=== PATIENT | female | born 1970 | race Caucasian/White ===

== ENCOUNTER → 2019-07-21 16:27 | Outpatient (BNVA) | payer SELFPAY | PROVIDERS: Visit Provider Internal Medicine | DX: D50.9 Iron deficiency anemia, unspecified (principal) | CPT/HCPCS: 82306; 82607; 83540; 84443 ==

== ENCOUNTER → 2020-01-20 09:00 | Outpatient (BNVA) | payer OTHER, SELFPAY | PROVIDERS: Family Provider Internal Medicine; PCP Internal Medicine; Visit Provider Nurse Practitioner Family | DX: Z20.828 Contact with and (suspected) exposure to other viral communicable diseases (principal) | CPT/HCPCS: 87426 ==

== ENCOUNTER → 2020-02-22 08:51 | Outpatient (BNVA) | payer OTHER, SELFPAY | PROVIDERS: Family Provider Internal Medicine; PCP Internal Medicine; Visit Provider Nurse Practitioner Family | DX: R50.9 Fever, unspecified (principal) | CPT/HCPCS: 87426 ==

== ENCOUNTER 2020-02-24 10:44 | Outpatient (CLI) | payer OTHER, SELFPAY ==
[2020-02-24 10:38] VITALS: BP 138/97; PULSE 92; RESP 14; TEMP 36.2; O2SAT 95; BMI 37.1
--- NOTE | 2020-02-24 10:43 | AMB.MCA ---
Patient Information Symptom onset date: 02/21/20 COVID 19 common symptoms: positive cough, non-productive cough, fatigue, body aches, headache(s), throat pain and nasal congestion COVID 19 other sytmptoms: negative chest pressure, chest pain, pleuritic pain or requiring oxygen Severity: moderate Treatment prior to arrival: none [facility] COVID test results: SARS-CoV-2 Antigen (Rapid) Negative (Negative) 02/22/20 08:51 02/22/20 outside results available, scanned (Reswabbed 02/24/20 and positive result available. ) Criteria/Plan Inclusion/Exclusion Criteria weight >/= 40kg, + direct test </= 10 days ago and symptom onset </= 10 days ago BMI >/= 35 and has immunosuppressive disease not requiring hospitalization, not requiring oxygen (if not chronically on oxygen) and no increase oxygen requirement (if chronically on oxygen) Patient education patient/caregiver received/reviewed fact sheet, Emergency Use Authorization/unapproved drug status discussed with patient/caregiver, alternatives to this treatment discussed with patient/caregiver, risks and benefits of medication reviewed with patient/caregiver, patient/caregiver given opportunity for questions, which were answered and patient/caregiver consents to receiving Monoclonal Antibody Treatment Plan for treatment Meets criteria for Monoclonal Antibody infusion
[2020-02-24 11:30] VITALS: BP 120/78; PULSE 76; RESP 16; TEMP 36.2; O2SAT 94
[2020-02-24 11:43] VITALS: BP 135/77; PULSE 83; RESP 15; TEMP 36.2; O2SAT 96
[2020-02-24 13:15] VITALS: BP 132/81; PULSE 79; RESP 16; TEMP 36.1; O2SAT 97
--- NOTE | 2020-03-01 15:12 | DCPLANNER ---
Addendum entered by Carmen Michel 03/08/20 14:48: certified dietary manager called to check on patient 10 days after getting the infusion. Patient stated that she is doing good. Patient also stated that she has not been admitted to hospital. Addendum entered by Carmen Michel 03/03/20 15:43: 03.01.20 - voicemail left for pt to return shelter case manager phone call Original Note: certified dietary manager had message that patient received the BAM infusion. certified dietary manager called to check on patient, called unable to speak with patient at this time. A voicemail was left for patient to return shelter case manager phone call.
== END 2020-02-24 13:15 | disposition home or self-care (01) ==
LOC: OPS 10:45
PROVIDERS: Family Provider Internal Medicine; PCP Internal Medicine; Visit Provider Nurse Practitioner Family
DX: U07.1 COVID-19 (principal)
CPT/HCPCS: 87426; J7050

== ENCOUNTER 2020-08-01 09:07 | Outpatient (CLI) | payer OTHER, SELFPAY ==
--- NOTE | 2020-08-01 09:30 | MM_ITS ---
WS: [id number] BILATERAL DIGITAL SCREENING MAMMOGRAPHY WITH CAD CLINICAL INFORMATION: Z12.31 - Encounter for screening mammogram for malignant neoplasm of breast HISTORY: Screening mammogram. No current complaints. COMPARISON: TECHNIQUE: Bilateral CC and MLO views. FINDINGS: Scattered fibroglandular densities bilaterally. A few punctate and lucent centered calcifications. No suspicious focal mass, asymmetry, calcifications, or architectural distortion. No evidence of malign meg. MM/[id number] IMPRESSION: BI-RADS: 2-Benign FOLLOW UP: 1 Year Follow-up Recommend return to annual screening mammography.
== END 2020-08-01 09:08 | disposition home or self-care (01) ==
LOC: RADSHAW 09:09
PROVIDERS: PCP Internal Medicine; Visit Provider Internal Medicine
DX: Z12.31 Encounter for screening mammogram for malignant neoplasm of breast (principal)
CPT/HCPCS: 77067

== ENCOUNTER → 2020-08-23 08:31 | Outpatient (BNVA) | payer OTHER, SELFPAY | PROVIDERS: PCP Internal Medicine; Visit Provider Internal Medicine | DX: Z00.00 Encounter for general adult medical examination without abnormal findings (principal); D50.9 Iron deficiency anemia, unspecified; J06.9 Acute upper respiratory infection, unspecified | CPT/HCPCS: 80053; 82306; 82607; 83036; 83550; 84443 ==

== ENCOUNTER → 2021-03-07 00:01 | Outpatient (BNVA) | payer OTHER, SELFPAY | PROVIDERS: PCP Internal Medicine; Visit Provider Nurse Practitioner Family | DX: J98.9 Respiratory disorder, unspecified (principal); R50.9 Fever, unspecified; Z20.822 Contact with and (suspected) exposure to COVID-19 | CPT/HCPCS: 87635 ==

== ENCOUNTER → 2021-03-08 08:41 | Outpatient (BNVA) | payer OTHER, SELFPAY | PROVIDERS: PCP Internal Medicine; Visit Provider Nurse Practitioner Family | DX: J98.9 Respiratory disorder, unspecified (principal); R50.9 Fever, unspecified; Z20.822 Contact with and (suspected) exposure to COVID-19 | CPT/HCPCS: 87635 ==